=== PATIENT | female | born 1985 | race Caucasian/White ===

== ENCOUNTER 2019-01-20 12:24 | Emergency (ER) | payer MEDICAID ==
[~2019-01-20] VITALS: Ht 165.1 cm; Wt 152.9 kg
[2019-01-20 12:34] VITALS: Ht 165.1 cm; Wt 152.9 kg
[2019-01-20 14:22] LABS: BASOPHIL % 0.4 % (0-2); PLATELET COUNT 346 x10^3mcL (130-400)
[2019-01-20 14:26] LABS: RED CELL DISTRIBUTION WIDTH 15.6 % (11.5-14.5)
[2019-01-20 14:31] LABS: CALCIUM 8.6 mg/dL (8.5-10.1); CHLORIDE SERUM 101 mmol/L (98-107); CREATININE SERUM 0.6 mg/dL (0.6-1.0); GFR1 > 60 mL/min; GLUCOSE SERUM 83 mg/dL (74-106); POTASSIUM SERUM 3.9 mmol/L (3.5-5.1); SODIUM SERUM 139 mmol/L (136-145)
[2019-01-20 14:41] LABS: ALKALINE PHOSPHATASE 105 U/L (46-116); ALT/SGPT 53 U/L (14-59); AST/SGOT 27 U/L (15-37); BILIRUBIN TOTAL 0.4 mg/dL (0.20-1.00); CHOLESTEROL 152 mg/dL (<200); HDL CHOLESTEROL 47 mg/dL (40-60); LIPASE 112 IU/L (73-393); T4(THYROXINE) 8.3 ug/dL (4.7-13.3); TOTAL PROTEIN, SERUM 8.1 g/dL (6.4-8.2)
[2019-01-20 14:42] LABS: ALBUMIN 3.3 g/dL (3.4-5.0)
[2019-01-20 15:38] LABS: microscopic required? NO
[2019-01-20 16:00] LABS: urine erythrocyte NEGATIVE (NEGATIVE)
[2019-01-20 16:08] LABS: AMPHETAMINE QUAL UR NONE DETECTED (See below)
[2019-01-20 18:48] VITALS: BP 142/83
== END 2019-01-20 18:48 | disposition home or self-care (01) ==
LOC: ED 12:24
PROVIDERS: Emergency Medicine
DX: J98.01 Acute bronchospasm (principal); R07.89 Other chest pain; I10 Essential (primary) hypertension; E66.01 Morbid (severe) obesity due to excess calories; Z98.890 Other specified postprocedural states; Z68.43 Body mass index [BMI] 50.0-59.9, adult
CPT/HCPCS: 36600; 83880; J2930; J7613; J7644